=== PATIENT | male | born 1950 | race Caucasian/White ===

== ENCOUNTER → 2023-07-21 16:46 | Outpatient (REF) | payer MEDICARE, BC, SELFPAY | LOC: RAD 16:46 | PROVIDERS: ATTENDING PHYSICIAN Family Medicine | DX: E78.00 Pure hypercholesterolemia, unspecified (principal); R03.0 Elevated blood-pressure reading, without diagnosis of hypertension | CPT/HCPCS: 75571 ==

== ENCOUNTER 2023-08-30 15:15 | Inpatient (IN) | payer MEDICARE, BC, SELFPAY ==
[2023-08-30] VITALS (12 sets, daily range): BP systolic 132–176; BP diastolic 70–96; PULSE 58–78; BMI 20.6; BMI 20.2
--- NOTE | 2023-08-30 10:56 | ED.GENMED ---
History of Present Illness
General
Chief Complaint: Abdominal Symptoms
Source: patient and spouse
Exam Limitations: none
Time Seen by Provider: 08/30/23 10:34
Nursing documentation reviewed up to this point in time: agreed with
Travel History
Have you had any contact with someone who has COVID-19?: No
Do you have any symptoms of coronavirus? Fever > 100 degrees, chills, cough, shortness of breath, sore throat, loss of taste or smell, muscle aches, or headache?: No
History of Present Illness
History of Present Illness:
73-year-old male presents the emergency department complaining of an episode of abdominal pain and dizziness last night, nausea vomiting diarrhea, cold sweats and syncope. He states he had red stool. He also notes an area of bruising on his penis
base. He denies any pain at this time.
Past History
Past History
ED Past Medical History: Arrthythmia, Hypercholesterolemia and Other (Polyps)
ED Past Surgical History: Tonsilectomy and Other (Hernia repair)
Social History
Tobacco: Non-smoker
Alcohol: None
Personal:
Living: with family
Review of Systems
Review of Systems
Allergies reviewed?: Yes
All Other Systems: Not applicable
Constitutional: Reports no symptoms
EENT: Reports no symptoms
Respiratory: Reports no symptoms
Cardiac: Reports syncope
ABD/GI: Reports abdominal pain and bloody stools
: Reports no symptoms
Musculoskeletal: Reports no symptoms
Skin: Reports no symptoms
Neurological: Reports no symptoms
Endocrine: Reports no symptoms
Hematologic/Lymphatic: Reports no symptoms
Psychiatric: Reports no symptoms
Phy Exam
Physical Exam
Physical Exam:
Physical Exam
General: no apparent distress, not acutely ill
Neck: supple. no meningeal signs. normal posterior pharynx
Heart: s1/s2 regular rate and rhythm, no murmur. equal radial
pulses.
HEENT: Pupils equal round reactive to light, EOMI
Lungs: no acute respiratory distress. clear bilaterally
Abdomen: normal bowel sounds. not tender. no CVAT, rectal exam red guaiac positive stool
: Ecchymosis at base of
Neuro: alert and oriented. no focal neurological deficits cranial nerves II through XII intact
Skin: no rash
Psychiatric: well kept. interactive and cooperative
Extremities: no edema. no calf tenderness. negative homans. good distal pulses
Course
Orders/Labs/Results
Orders:
Orders
08/30/23 10:48
Cardiac Monitoring- Treatment ONCE
IV Insert/Care/Rem.- Treatment PRN
Pulse Ox/cont/shift [RESP] Stat
Quantity: 1
08/30/23 10:51
Electrocardiogram (*1) Stat
Reason for Study: Other
Other Reason for Exam: GI Bleed
EKG- Treatment ONCE
08/30/23 10:52
CT Head W/o Iv Contrast Urgent
Comment:
Reason For Exam: fall, hit head, on eliquis
08/30/23 11:14
Type+Screen Urgent
08/30/23 11:15
Complete Blood Count/With Diff Urgent
Comprehensive Metabolic Panel Urgent
PTT Urgent
Prothrombin Time Urgent
08/30/23 14:34
Admit/Transfer Patient As Directed
Co-Sign Provider:
Level of Care: Inpatient admission
Assign to:: Telemetry
Physician / Group: rivas
Diagnosis: GI bleed
Reason for Telemetry: Arrhythmia
Date to Stop Telemetry: 09/02/23
Time to Stop Telemetry: 11:00
Reason for Hospitalization: GI bleed
Expected length of stay greater than two midnights?: Yes
ELOS- Estimated Length of Stay in days: 3
I certify the patient meets the requirements for IP care: Yes
08/30/23 14:35
Code Status As Directed
Resuscitation Status: Full Code
08/30/23 19:07
Acetaminophen [Tylenol] 650 mg PO Q4HPRN PRN
08/30/23 19:07
GASTROINTESTINAL CONSULT Routine
Consulting Provider: Kira Peace
Was physician already notified: Yes
Activity As Directed
Activity Level: As Tolerated
INT (Intravenous Needle Therapy) As Directed
Comment: Place 2 IV catheters of the largest bore possible until stable
Orthostatic Vital Signs As Directed
Orthostatic VS Frequency: Now
Comment: then every four hours for twenty-four hours
Pneumatic Compression Sleeves As Directed
Type: Thigh high
Stool for occult blood [Hemetest Stools] As Directed
Vital Signs As Directed
Frequency: Per unit guidelines
DX Deep Vein Thrombosis Video Routine
08/30/23 19:48
Norovirus by PCR Stat
EVAN Source: Feces/Stool
Specimen Description:
Date Specimen was Collected: 08/30/23
Time Specimen was Collected: 19:45
Stool Culture Routine
EVAN Source: Feces/Stool
Specimen Description:
Date Specimen was Collected: 08/30/23
Time Specimen was Collected: 19:45
Stool For WBC Stat
EVAN Source: Feces/Stool
Specimen Description:
Date Specimen was Collected: 08/30/23
Time Specimen was Collected: 19:45
08/30/23 19:56
H&H Routine
08/30/23 20:00
Dronedarone [Multaq] 400 mg PO BID
Pantoprazole [Protonix IV] 40 mg IV BID
08/31/23 05:23
Basic Metabolic Panel IN AM
Complete Blood Count/No Diff IN AM
Lipid Profile [Cardiovascular Evaluation] IN AM
08/31/23 06:00
Occupational Therapy Consult [Ot Eval And Treat] IN AM
Physical Therapy Consult [Pt Eval And Treat] IN AM
Activity Level: As Tolerated
09/01/23 06:00
Basic Metabolic Panel IN AM
Complete Blood Count/No Diff IN AM
09/02/23 06:00
Basic Metabolic Panel IN AM
Complete Blood Count/No Diff IN AM
09/02/23 11:00
DC Protocol for Telemetry ONCE
09/03/23 06:00
Basic Metabolic Panel IN AM
Complete Blood Count/No Diff IN AM
09/04/23 06:00
Basic Metabolic Panel IN AM
Complete Blood Count/No Diff IN AM
Abnormal Lab Results
08/30/23
11:15
RBC 4.43 L 10^6/uL
(4.70-6.10)
MCH 33.9 H pg
(27.0-31.0)
Absolute Lymphs (auto) 0.6 L 10^3/uL
(1.2-3.4)
Absolute Monos (auto) 0.7 H 10^3/uL
(0.1-0.6)
Neutrophils % 80.6 H %
(42.2-75.2)
Lymphocytes % 8.9 L %
(20.5-51.1)
Monocytes % 9.8 H %
(1.7-9.3)
PT 15.5 H Sec
(11.4-14.6)
Glucose 145 H mg/dl
(70-99)
08/30/23 11:15
08/30/23 11:15
Vital Signs
Initial and Last Documented VS:
Initial Vital Signs
Temp Pulse Resp BP Pulse Ox
98.3 F 82 18 135/80 99
08/30/23 09:59 08/30/23 09:59 08/30/23 09:59 08/30/23 09:59 08/30/23 09:59
Last Documented Vital Signs
Temp Pulse Resp BP Pulse Ox
97.6 F 53 18 126/70 98
08/31/23 08:00 08/31/23 08:00 08/31/23 08:00 08/31/23 08:00 08/31/23 08:00
MDM/Problems Addressed
Differential Diagnosis Includes:
GI bleed, hemorrhoids, syncope, dysrhythmia
MDM/Problems Addressed:
73-year-old male with bright red blood per rectum, syncope episode. Vital signs stable. Unclear etiology of syncope. No signs of dysrhythmia. Admit to hospitalist.
Chronic conditions affecting care: Arrhythmia (Atrial fibrillation) and Other (Chronic anticoagulation)
Acute Exacerbation and/or Progression of Chronic Illness: Arrhythmia (Atrial fibrillation) and Other (Chronic anticoagulation)
*Radiology
Radiology exam reviewed: radiology read reviewed (CT head no acute findings)
*Pulse Oximetry
Patient hypoxic: no
*EKG
Interpreted by ED Provider?: Yes
EKG Intrepretation Date: 08/30/23
EKG Intrepretation Time: 10:56
Interpretation: abnormal
Comparison EKG: no changes
Heart Rate: 64
Rate: normal
Rhythm: sinus
Velpen: normal axis
Interval: normal interval
QRS Pattern: normal QRS
Ischemia: no ischemia
*Car Head Liner Installer Interpretation
Rate: normal
Interpretation: normal
Heart Rate: 65
Rhythm: sinus
*Critical Care Note
Total Time (30-74mins, 75-104mins- exclusive of procedures): Not Applicable
Data Reviewed
Review of Other/Old Records Reveals: Labs (Prior hemoglobin 13.9 on 01/28/2023)
Source: records
Further Testing Considered But Not Given:
CT abdomen pelvis not indicated at this time
Patient Management
Social determinants of health affecting care: Living situation
Discussion with other providers: Hospitalist
Escalation/DeEscalation of care consider admission/obs:
Admission indicated
ED Attending Note
-
Portions of this chart may have been created with voice recognition software.� Occasional wrong word or��sound alike� substitutions may have occurred due to the inherent limitations of voice recognition software.
Discharge Plan
Departure
Patient Disposition: Admit
Date of Disposition: 08/30/23
Time of Disposition: 14:01
Admit to: Telemetry
Admit to doctor: Rivas
Presentation/result/management discussed w/ accepting MD/DO: Hospitalist
Patient with high blood pressure during this ER visit?: Yes
Condition: Good
Discharge Problem:
Rectal bleeding, Syncope
Interventions
Interventions:
*Risk Screen - Suicide Last Done: 08/30/23 11:13
*General Assessment Last Done: 08/30/23 11:44
*Neglect/Abuse Screening Last Done: 08/30/23 11:13
*ED COVID-19 Vaccine History Last Done: 08/30/23 10:03
*Nursing Disposition Last Done: 08/30/23 19:10
DX-[id number]-Edcrfkkmsm Assessment Last Done: 08/30/23 18:06
Discharge Date and Time
Discharge Date/Time: 08/30/23 19:10
[2023-08-30 11:25] LABS: % Basophils 0.3 % (0-2); % Eosinophils 0.1 % (0-6); % Immature Granulocytes 0.3 % (0-0.5); % Lymphocytes 8.9 % (20.5-51.1); % Monocytes 9.8 % (1.7-9.3); % Neutrophils 80.6 % (42.2-75.2); Absolute Lymphocytes 0.6 10^3/uL (1.2-3.4); Absolute Monocytes 0.7 10^3/uL (0.1-0.6); Absolute Neutrophils 5.6 10^3/uL (1.4-6.5); Hematocrit 41.2 % (39.0-52.0); Mean Corp Hgb Conc. 36.4 g/dL (33.0-37.0); Mean Corpuscular Hgb 33.9 pg (27.0-31.0); Mean Platelet Volume 9.6 fL (7.4-10.4); Nucleated Red Blood Cells % 0 % (-); Platelet Count 255 10^3/uL (130-400); Red Blood Cell Count 4.43 10^6/uL (4.70-6.10); Red Cell Dist. Width 12.1 % (11.5-14.5)
[2023-08-30 11:37] LABS: INR 1.25; PT 15.5 Sec (11.4-14.6)
[2023-08-30 11:38] LABS: APTT 31.3 Sec (23.4-35.0)
[2023-08-30 11:45] LABS: ALT (SGPT) 22 U/L (0-50); AST (SGOT) 30 U/L (17-59); Albumin 4.3 g/dl (3.5-5.0); Alkaline Phosphatase 48 U/L (38-126); Blood Urea Nitrogen 18 mg/dl (9-20); Calcium 9.3 mg/dl (8.4-10.2); Carbon Dioxide 25 mmol/L (22-30); Chloride 102 mmol/L (98-107); Estimated Creatinine Clearance 92 ml/min; Glucose 145 mg/dl (70-99); Potassium 4.2 mmol/L (3.5-5.1); Sodium 135 mmol/L (135-145); Total Bilirubin 0.7 mg/dl (0.2-1.3); Total Protein 6.7 g/dl (6.3-8.2); eGFR > 60.00
--- NOTE | 2023-08-30 14:04 | HPS.HSE ---
Family Physician
-
Family Physician: Kelechi Lepe
Chief Complaint
-
rectal bleed
History of Present Illness
73 year old with PMH for atrial fib on eliquis, HLD, polyps presented to us with rectal bleed since last night. patient woke with sharp lower mid abdominal pain in the middle of night. pain subsided after having diarrhea. patient sat on toilet, felt
lightheaded, dizzy, fell towards the right side. hit the head on the wall. he lost the level of consciousness for few seconds. he got up, sat on the toilet and started having diarrhea for one hour, also vomited once. when he wiped he noticed
bright red blood. he woke with bloody diarrhea again. he ate beets on Tuesday night.at present denied JUSTICE. denied chest pain, sob. denied dysuria or hematuria. patient on eliquis since January. he had colonoscopy in January with impression of polyp in
ascending colon, which was removed. patient does not use NSAIDS. he uses Tylenol prn for any pain.
hgb stable in ER. admitting for further management.
Medical History
Past Medical History
Past Medical History: Reports Other
Additional Past Medical History:
left inguinal hernia
HLD
paroxysmal atrial fib
Past Surgical History: Reports Other
Additional Past Surgical History:
tonsillectomy
left inguinal hernia repair with mesh
Social History
Tobacco: Non-smoker
Alcohol: Occasional
Drug: None
Family History
Family History: Not pertinent
Allergies / Home Medications
Allergies reflects when Allergies were last updated in [facility].
Home Medications with original date entered in [facility]
Allergy/Medication List:
Allergies
Allergy/AdvReac Type Severity Reaction Status Date / Time
house dust Allergy nasal Verified 08/30/23 10:03
symptoms
mold Allergy nasal Verified 08/30/23 10:03
symptoms
Penicillins Allergy -2015? Verified 08/30/23 10:03
pollen extracts Allergy nasal Verified 08/30/23 10:03
symptoms
Home Medications
multivitamin 1 ea PO DAILY Supplement 09/21/19
apixaban 5 mg tablet (Eliquis) 5 mg PO BID Blood clot prevention/tx #60 tabs 01/28/23
acetaminophen 325 mg tablet (Tylenol) 650 mg PO Q4HPRN PRN mild pain 08/30/23
dronedarone 400 mg tablet (Multaq) 400 mg PO BID 08/30/23
Review of Systems
-
Constitutional: Reports No Symptoms
EENT: Reports No Symptoms
Respiratory: Reports No Symptoms
Cardiac: Reports No Symptoms
Abdomen/GI: Reports Abdominal Pain, Vomiting and Bloody Stools
: Reports No Symptoms
Musculoskeletal: Reports No Symptoms
Skin: Reports No Symptoms
Neurological: Reports Dizzy
Endocrine: Reports No Symptoms
Hematologic/Lymphatic: Reports No Symptoms
Psych: Reports No Symptoms
Physical Exam
Vital Signs
Vital Signs
Temp Pulse Resp BP Pulse Ox
98.3 F 82 18 135/80 99
08/30/23 09:59 08/30/23 09:59 08/30/23 09:59 08/30/23 09:59 08/30/23 09:59
Physical Exam
General: Well Developed, Well Nourished and No Apparent Distress
HEENT: NormoCephalic, Moist mucous membranes and Atraumatic
Respiratory: Clear
Cardiac: S1/S2 and Regular Rhythm; No Murmur or Rub
GI: Soft, Non Tender, Non Distended and Normal Bowel Sounds; No Organomegaly
Rectal: Deferred by Provider
Musculoskeletal: No Clubbing, No Cyanosis and No Edema
Skin: No Rash
Neuro: AO x 3 and Nonfocal/grossly intact
Psych: Calm
Laboratory Results
-
08/30/23 11:15
08/30/23 11:15
Laboratory Results
PT 15.5 Sec (11.4-14.6) H 08/30/23 11:15
INR 1.25 08/30/23 11:15
APTT 31.3 Sec (23.4-35.0) 08/30/23 11:15
Total Bilirubin 0.7 mg/dl (0.2-1.3) 08/30/23 11:15
AST 30 U/L (17-59) 08/30/23 11:15
ALT 22 U/L (0-50) 08/30/23 11:15
Alkaline Phosphatase 48 U/L (38-126) 08/30/23 11:15
Data Reviewed
-
Lab Data: Labs Reviewed by me
Impression/Plan
-
#GI bleed likely anticoagulant associated
-hgb 15.0
-trend hgb
-clear liquid diet
-IV PPI BID
-GI consulted
#diarrhea
-obtain stool culture, norovirus
-ctm
#syncope/fall likely vasovagal
-head CT with No evidence of acute intracranial abnormality.
-EKG with NSR, incomplete right bundle branch block
-PT/OT consult
#paroxysmal atrial fib
-HR controlled
-Multaq continued
-hold eliquis
#DVT prophylaxis
-scd
#CODE status
-full code
--- NOTE | 2023-08-30 14:24 | W.PN.UPDATE ---
Update Note
Progress Note Update
This serves as an addendum to H&P dictated by Rangel Lennon on 08/30/2023.
I saw and examined the patient.
The PICTURE COPYIST or PA's note was reviewed and I agree with the note.
Comment:
Patient is 73 years old male with history of hyperlipidemia, atrial fibrillation on chronic anticoagulation, presented to the hospital with abdominal pain nausea vomiting and diarrhea and bright blood per rectum as well as a syncope event. Patient
had mid abdominal pain moderate intensity associated with watery diarrhea and blood in the stools associated with lightheadedness and passed out hit his head on the wall. He has some chills. Denies out of the normal ordinary food. He does have
hemorrhoids and they are being bothering him. He also had a colonoscopy relatively recent that showed some polyps which were removed. In the ER hemoglobin noted to be [address] scan of the head unremarkable for any acute intracranial abnormalities.
Physical exam:
General: Well Developed, Well Nourished and No Apparent Distress
HEENT: Normocephalic, Atraumatic and Moist Mucous Membranes
Respiratory: Clear to Auscultation; Negative Wheezes, Rales or Rhonchi
Cardiac: Regular Rhythm and S1/S2
GI: Soft, Nontender and Nondistended
Musculoskeletal: No Clubbing, No Cyanosis and No Edema
Neuro: Awake, Alert and Oriented
Psych: Calm
A/P:
Syncope and GI bleed, likely hemorrhoidal-monitor hemoglobin, monitor orthostatic, cardiac monitoring. Stool cultures. Probably GI eval. Hold off anticoagulation for tonight. Will give further recommendations based on his clinical course.
--- NOTE | 2023-08-30 16:28 | CON.GI ---
Addendum entered and electronically signed by Kira Peace MD 08/30/23 17:33:
I saw and examined the patient.
The FISHER DIVING or PA's note was reviewed and I agree with the note.
Comment: 73-year-old male with history of hypertension, cholesterol, atrial fibrillation on Eliquis, presenting with sudden onset rectal bleeding. As per patient, he woke up from sleep early this morning with some abdominal pain, had an urge to
have a bowel movement, had cold sweat, chills passed out. When he regained consciousness, he went back to sit on the toilet bowl and had multiple episodes of what he says is red bowel movements. No abdominal pain since. Last bowel movement was
this morning and nothing since he came to the emergency room. Intermittent episodes of rectal bleeding with bright blood on the toilet tissue but nothing similar to occur at this time. He did report having the red beats 2 nights ago for dinner.
Does not take NSAIDs. Colonoscopy in January 2023, hemorrhoids and ascending colon sessile serrated polyp removed.
In the ER, hemoglobin in normal range, rectal exam showed red stool. Last Eliquis dose this morning. No family history of colon cancer or polyps. No evidence of diverticulosis noted on colonoscopy.
-Hematochezia, hemodynamically stable and normal hemoglobin in the setting of anticoagulation
Rule out diverticular bleed versus hemorrhoidal bleed versus other
Currently no further bleeding.
Okay for clear liquid diet without reds.
Agree with monitoring H&H and bowel movements.
If overt active bleeding, agree with CT angiogram.
Stool studies if continues to have bloody diarrhea.
Will follow-up
Original Note:
Consultation
-
Date/Time Consultation Requested: 08/30/23 1500
Date/Time Consultation Performed: 08/30/23 1530
Requesting Provider: BERNADETTE Lambert
Performing Provider: Dr. Peace/BERNADETTE Dawn
Reason for Consultation: Rectal bleeding
Medical History
Chief Complaint / HPI
Chief Complaint: rectal bleeding
History of Present Illness:
73-year-old male with past medical history of hyperlipidemia, HTN, colon polyps, A-fib on Eliquis 5 mg twice daily, last dose this a.m. who presents to the emergency room with rectal bleeding. Asked to evaluate for the same. Patient states that
last night in the middle the night he got up with sharp abdominal discomfort. He sat on the toilet to have a bowel movement, he states he felt dizzy lightheaded and passed out. He believes he did lose consciousness. He has an abrasion across the
right side of his forehead. He states he went back on the toilet proceeded to have evacuate his bowels and have multiple liquid bowel movements which alleviated his discomfort. He states that initially he did not look at his multiple bowel
movements but then eventually he did and he noticed it was blood within the toilet. He states that this was bloody loose stools. At first he thought that it was the beets that he ate on Tuesday. He did have a normal bowel movement following eating
that. The night before he also had kale salad, strawberries. He states his had the same thing but is not sick. He also states that he did have nausea and vomiting. Patient states he continued to have blood per rectum. He states that he
does have hemorrhoids and does have bright red blood per rectum upon wiping a couple times a week. This is never bloody stools. The patient has had no further abdominal discomfort. The patient's last episode of bleeding was prior to arrival. He
had a rectal exam performed in the emergency room that was bright red blood per rectum. He denies any fevers, chills, melena, dysphagia or odynophagia. No early satiety or unintentional weight loss. He does not take any NSAIDs.WBC 7.0, hemoglobin
15.0, hematocrit 41.2, platelets 255, MCV 93.0, MCH 33.9, PT 15.5, INR 1.25, sodium 135, potassium 4.2, chloride 102, CO2 25, BUN 18, creatinine 0.7, glucose 145, total bilirubin 0.7, AST 30, ALT 22, alk phos 48.
Past Medical History
Past Medical History: Arrhythmias (Afib), HTN, Hypercholesterolemia and Other (colon polyps)
Past Surgical History: Tonsilectomy and Other (hernia repair)
Social History
Tobacco: Non-Smoker
Alcohol: Occasional (5 drinks a week)
Drug: None
Personal:
Living: With Family
Family History
Family History: Other (No family hx GI malignancy or IBD)
Allergies / Home Medications
Allergy/AdvReac Type Severity Reaction Status Date / Time
house dust Allergy nasal Verified 08/30/23 10:03
symptoms
mold Allergy nasal Verified 08/30/23 10:03
symptoms
Penicillins Allergy -2014? Verified 08/30/23 10:03
pollen extracts Allergy nasal Verified 08/30/23 10:03
symptoms
�Medication �Instructions �Recorded
multivitamin 1 ea PO DAILY Supplement 09/21/19
apixaban 5 mg tablet (Eliquis) 5 mg PO BID Blood clot 01/28/23
prevention/tx #60 tabs
acetaminophen 325 mg tablet 650 mg PO Q4HPRN PRN mild pain 08/30/23
(Tylenol)
dronedarone 400 mg tablet (Multaq) 400 mg PO BID 08/30/23
Review of Systems
-
All other systems: A 12 pt ROS was Negative except as stated above in HPI
Vital Signs
Temp Pulse Resp BP Pulse Ox
98.3 F 70 20 165/83 98
08/30/23 09:59 08/30/23 15:46 08/30/23 15:46 08/30/23 15:46 08/30/23 15:46
Physical Exam
Exam
General: No Apparent Distress
HEENT: Normocephalic
Respiratory: Clear
Cardiac: Regular Rhythm
GI: Soft, Non Tender, Non Distended and Normal Bowel Sounds
Rectal: Red
Skin: Warm and Dry
Neuro: AO x 3
Psych: Calm
Results
WBC 7.0 10^3/uL (4.8-10.8) 08/30/23 11:15
Hgb 15.0 g/dL (13.0-18.0) 08/30/23 11:15
Hct 41.2 % (39.0-52.0) 08/30/23 11:15
MCV 93.0 fL (80.0-94.0) 08/30/23 11:15
Plt Count 255 10^3/uL (130-400) 08/30/23 11:15
Absolute Neuts (auto) 5.6 10^3/uL (1.4-6.5) 08/30/23 11:15
PT 15.5 Sec (11.4-14.6) H 08/30/23 11:15
INR 1.25 08/30/23 11:15
APTT 31.3 Sec (23.4-35.0) 08/30/23 11:15
Sodium 135 mmol/L (135-145) 08/30/23 11:15
Potassium 4.2 mmol/L (3.5-5.1) 08/30/23 11:15
Chloride 102 mmol/L (98-107) 08/30/23 11:15
Carbon Dioxide 25 mmol/L (22-30) 08/30/23 11:15
BUN 18 mg/dl (9-20) 08/30/23 11:15
Creatinine 0.7 mg/dL (0.7-1.3) 08/30/23 11:15
Calcium 9.3 mg/dl (8.4-10.2) 08/30/23 11:15
Total Bilirubin 0.7 mg/dl (0.2-1.3) 08/30/23 11:15
AST 30 U/L (17-59) 08/30/23 11:15
ALT 22 U/L (0-50) 08/30/23 11:15
Alkaline Phosphatase 48 U/L (38-126) 08/30/23 11:15
Diagnostic Image Results:
Prior GI Procedures:
EGD: never
Colonoscopy: 01/27/2023 ([facility]) - One 4 mm polyp in the ascending colon, removed with
a cold snare. Resected and retrieved.
- Internal hemorrhoids.
Colonoscopy 01/26/2013 ([facility]) - Two benign appearing 3 to 12 mm polyps in the rectum
and in the proximal ascending colon. These were biopsied.
- The examined portion of the ileum was normal.
Assessment / Plan
-
73-year-old male with past medical history of hyperlipidemia, HTN, colon polyps, A-fib on Eliquis 5 mg twice daily, last dose this a.m. who presents to the emergency room with rectal bleeding. Asked to evaluate for the same. Patient states that
last night in the middle the night he got up with sharp abdominal discomfort. He sat on the toilet to have a bowel movement, he states he felt dizzy lightheaded and passed out. He believes he did lose consciousness. He has an abrasion across the
right side of his forehead. He states he went back on the toilet proceeded to have evacuate his bowels and have multiple liquid bowel movements which alleviated his discomfort. He states that initially he did not look at his multiple bowel
movements but then eventually he did and he noticed it was blood within the toilet. He states that this was bloody loose stools. These eventually slowed down and he has had no further since arrival in the ER. It also was associated with nausea and
vomiting. He did have kale and strawberries prior to onset of symptoms. His also had same thing and was not ill. He had no fevers or chills. There is no leukocytosis. He has had no further abdominal cramping or pain. His abdomen is
nontender. WBC 7.0, hemoglobin 15.0, hematocrit 41.2, platelets 255, MCV 93.0, MCH 33.9, PT 15.5, INR 1.25, sodium 135, potassium 4.2, chloride 102, CO2 25, BUN 18, creatinine 0.7, glucose 145, total bilirubin 0.7, AST 30, ALT 22, alk phos 48.
Impression:
Hematochezia-> Hgb 15.0
Chronic anticoagulation Eliquis for A-fib, last dose this morning
Nausea and vomiting resolved
Plan:
-Trend Hgb
-Clear liquids no reds
-Stool studies if with BM
-Hold on any Abx as patient non toxic and without any abd pain
-If with active brisk bleeding would order CTA Abd/Pelvis.
-Further recommendations to be forthcoming
-
-
Thank you for consultation and allowing me to participate in the patient's care. Please call the program evaluation consultant GI physician during the after hours with any questions or concerns.
[2023-08-30 20:03] LABS: Hematocrit 44.3 % (39.0-52.0); Hemoglobin 15.3 g/dL (13.0-18.0)
[2023-08-30] MEDS: NSS (PRESERVATIVE FREE) 10 ML IV (20:03)
[2023-08-30] MEDS: PROTONIX IV 40 MG IV (20:03)
[2023-08-30] MEDS: MULTAQ 400 MG PO (20:03)
--- NOTE | 2023-08-30 22:13 | VATNOTE ---
PT WITH NO IV THERAPY ORDERS. H/H 15.0/41.2 WILL NOT INSERT A SECOND LARGE BORE IV AT THIS TIME.
[2023-08-31] VITALS (11 sets, daily range): BP systolic 120–160; BP diastolic 70–85; PULSE 53–69; O2SAT 100
[2023-08-31 06:20] LABS: Hematocrit 41.3 % (39.0-52.0); Hemoglobin 14.2 g/dL (13.0-18.0); Mean Corp Hgb Conc. 34.4 g/dL (33.0-37.0); Mean Corpuscular Hgb 33.1 pg (27.0-31.0); Mean Corpuscular Volume 96.3 fL (80.0-94.0); Mean Platelet Volume 9.6 fL (7.4-10.4); Platelet Count 224 10^3/uL (130-400); Red Blood Cell Count 4.29 10^6/uL (4.70-6.10); Red Cell Dist. Width 12.4 % (11.5-14.5); White Blood Cell Count 4.7 10^3/uL (4.8-10.8)
[2023-08-31 06:58] LABS: Blood Urea Nitrogen 14 mg/dl (9-20); Calcium 8.7 mg/dl (8.4-10.2); Carbon Dioxide 27 mmol/L (22-30); Chloride 105 mmol/L (98-107); Estimated Creatinine Clearance 78 ml/min; Glucose 84 mg/dl (70-99); HDL Cholesterol 56 mg/dl; LDL Cholesterol, Calculated 92 mg/dl; Potassium 4.2 mmol/L (3.5-5.1); Sodium 139 mmol/L (135-145); Total Cholesterol 166 mg/dl (50-199); Triglyceride 91 mg/dl (10-149); Very Low Density Lipoprotein 18 mg/dl (0-30); eGFR > 60.00
[2023-08-31] MEDS: MULTAQ 400 MG PO ×2 (08:02→19:49)
[2023-08-31] MEDS: NSS (PRESERVATIVE FREE) 10 ML IV ×2 (08:02→19:49)
[2023-08-31] MEDS: PROTONIX IV 40 MG IV ×2 (08:02→19:50)
--- NOTE | 2023-08-31 08:45 | W.PN.HOSP.TC ---
Today's Communication/Plan
-
Monitor hemoglobin. GI reeval.
Assessment / Plan
Assessment / Plan
Physical Exam
General: Well Developed, Well Nourished and No Apparent Distress
HEENT: NormoCephalic, Moist mucous membranes and Atraumatic
Respiratory: Clear
Cardiac: S1/S2 and Regular Rhythm; No Murmur or Rub
GI: Soft, Non Tender, Non Distended and Normal Bowel Sounds; No Organomegaly
Rectal: Deferred by Provider
Musculoskeletal: No Clubbing, No Cyanosis and No Edema
Skin: No Rash
Neuro: AO x 3 and Nonfocal/grossly intact
Psych: Calm
A/P:
#GI bleed likely anticoagulant associated
-hgb 15.0-->14.2
-trend hgb
-clear liquid diet--> advance to full liquid today
-IV PPI BID
-GI consult and follow-up appreciated
-Restart anticoagulation when okay by GI
#diarrhea
-obtain stool culture, c diff, norovirus
-ctm
#syncope/fall likely vasovagal
-head CT with No evidence of acute intracranial abnormality.
-EKG with NSR, incomplete right bundle branch block
-PT/OT consult
-Check orthostatics
#paroxysmal atrial fib
-HR controlled
-Multaq continued
-hold eliquis
#DVT prophylaxis
-scd
#CODE status
-full code
Anticipated Discharge: 24 - 48 hours
Subjective/Interval History
-
Date of Service: August 31, 2023
Patient without further bleeding today. No abdominal pain.
Objective Data
-
Labs:
Laboratory Results
08/31/23
05:23
WBC 4.7 L
Hgb 14.2
Hct 41.3
Plt Count 224
Sodium 139
Potassium 4.2
Chloride 105
Carbon Dioxide 27
BUN 14
Creatinine 0.8
Glucose 84
Calcium 8.7
Vital Signs:
Vital Signs
Temp Pulse Resp BP Pulse Ox
97.6 F 53 18 126/70 98
08/31/23 08:00 08/31/23 08:00 08/31/23 08:00 08/31/23 08:00 08/31/23 08:00
I&O
08/30/23 08/31/23 09/01/23
06:59 06:59 06:59
Intake Total 440 / 440
Balance 440 / 440
--- NOTE | 2023-08-31 09:34 | PTOTSP ---
The patient is independent with ambulation and elevations, demonstrating no mobility deficits. No PT needs identified at this time, will sign off.
--- NOTE | 2023-08-31 09:42 | PTOTSP ---
Pt is independent in ADLs and functional mobility/transfers with no device. No skilled OT services warranted. Will sign off.
--- NOTE | 2023-08-31 12:46 | W.PN.GI.CBS2 ---
Today's Communication / Plan
-
-Hematochezia, hemodynamically stable and normal hemoglobin in the setting of anticoagulation
Rule out diverticular bleed versus hemorrhoidal bleed versus infectious
Bleeding seems to have subsided now.
Stool white cells noted, normal white is negative, cultures pending. Will add C. difficile.
Cannot rule out infectious etiology
Currently no further bleeding.
Okay for full liquid diet
Continue monitoring H&H and bowel movements.
If overt active bleeding, agree with CT angiogram.
Will follow-up
Assessment / Plan
-
73-year-old male with past medical history of hyperlipidemia, HTN, colon polyps, A-fib on Eliquis 5 mg twice daily, last dose this a.m. who presents to the emergency room with rectal bleeding. Asked to evaluate for the same. Patient states that
last night in the middle the night he got up with sharp abdominal discomfort. He sat on the toilet to have a bowel movement, he states he felt dizzy lightheaded and passed out. He believes he did lose consciousness. He has an abrasion across the
right side of his forehead. He states he went back on the toilet proceeded to have evacuate his bowels and have multiple liquid bowel movements which alleviated his discomfort. He states that initially he did not look at his multiple bowel
movements but then eventually he did and he noticed it was blood within the toilet. He states that this was bloody loose stools. These eventually slowed down and he has had no further since arrival in the ER. It also was associated with nausea and
vomiting. He did have kale and strawberries prior to onset of symptoms. His also had same thing and was not ill. He had no fevers or chills. There is no leukocytosis. He has had no further abdominal cramping or pain. His abdomen is
nontender. WBC 7.0, hemoglobin 15.0, hematocrit 41.2, platelets 255, MCV 93.0, MCH 33.9, PT 15.5, INR 1.25, sodium 135, potassium 4.2, chloride 102, CO2 25, BUN 18, creatinine 0.7, glucose 145, total bilirubin 0.7, AST 30, ALT 22, alk phos 48.
Impression:
Hematochezia-> Hgb 15.0
Chronic anticoagulation Eliquis for A-fib, last dose this morning
Nausea and vomiting resolved
-Hematochezia, hemodynamically stable and normal hemoglobin in the setting of anticoagulation
Rule out diverticular bleed versus hemorrhoidal bleed versus infectious
Bleeding seems to have subsided now.
Stool white cells noted, normal white is negative, cultures pending. Will add C. difficile.
Cannot rule out infectious etiology
Currently no further bleeding.
Okay for full liquid diet
Continue monitoring H&H and bowel movements.
If overt active bleeding, agree with CT angiogram.
Will follow-up
Addendum dictated by: Kira Peace MD
Subjective
Subjective
Date of Service: August 31, 2023
Patient without any abdominal pain, nausea or vomiting. He had a couple loose bowel movements in the morning and 1 last night at 9 PM, maroon stool, mostly blood and nothing since.
Objective
Data Reviewed
Laboratory Data:
Laboratory Results
08/31/23 05:23
08/31/23 05:23
Laboratory Results
PT 15.5 Sec (11.4-14.6) H 08/30/23 11:15
INR 1.25 08/30/23 11:15
APTT 31.3 Sec (23.4-35.0) 08/30/23 11:15
Total Bilirubin 0.7 mg/dl (0.2-1.3) 08/30/23 11:15
AST 30 U/L (17-59) 08/30/23 11:15
ALT 22 U/L (0-50) 08/30/23 11:15
Alkaline Phosphatase 48 U/L (38-126) 08/30/23 11:15
Vital Signs and I&O:
Vital Signs
Temp Pulse Resp BP Pulse Ox
97.8 F 57 18 151/77 98
08/31/23 11:05 08/31/23 11:05 08/31/23 11:05 08/31/23 11:05 08/31/23 11:05
I&O
08/30/23 08/31/23 09/01/23
06:59 06:59 06:59
Intake Total 440 / 440
Balance 440 / 440
Physical Exam
Physical Exam
GI: Soft, Non Distended, Non Tender and Normal Bowel Sounds
--- NOTE | 2023-08-31 17:16 | CM ---
Alert awake oriented patient who lives with his Michelle who lives in a 2 story home with 2 step to enter and 12 steps to bed and bathroom. He is independent in driving and in all activities of daily living.He was offered VN he declined need.No
adaptive devices.
No VN hx / No SNF history
[facility]
PCP DR Camarena
PLAN Home Declined VN
[2023-09-01] VITALS (9 sets, daily range): BP systolic 132–151; BP diastolic 67–84
[2023-09-01 06:34] LABS: Hematocrit 41.3 % (39.0-52.0); Hemoglobin 14.4 g/dL (13.0-18.0); Mean Corp Hgb Conc. 34.9 g/dL (33.0-37.0); Mean Corpuscular Volume 94.5 fL (80.0-94.0); Mean Platelet Volume 9.6 fL (7.4-10.4); Platelet Count 224 10^3/uL (130-400); Red Blood Cell Count 4.37 10^6/uL (4.70-6.10); Red Cell Dist. Width 12.3 % (11.5-14.5)
[2023-09-01 06:56] LABS: Blood Urea Nitrogen 12 mg/dl (9-20); Calcium 9.1 mg/dl (8.4-10.2); Carbon Dioxide 28 mmol/L (22-30); Chloride 103 mmol/L (98-107); Estimated Creatinine Clearance 78 ml/min; Glucose 85 mg/dl (70-99); Potassium 4.4 mmol/L (3.5-5.1); Sodium 137 mmol/L (135-145); eGFR > 60.00
[2023-09-01] MEDS: NSS (PRESERVATIVE FREE) 10 ML IV (08:17)
[2023-09-01] MEDS: PROTONIX IV 40 MG IV (08:17)
[2023-09-01] MEDS: MULTAQ 400 MG PO ×2 (08:17→20:19)
--- NOTE | 2023-09-01 08:36 | W.PN.HOSP.TC ---
Today's Communication/Plan
-
Monitor hemoglobin.
Assessment / Plan
Assessment / Plan
Physical Exam
General: Well Developed, Well Nourished and No Apparent Distress
HEENT: NormoCephalic, Moist mucous membranes and Atraumatic
Respiratory: Clear
Cardiac: S1/S2 and Regular Rhythm; No Murmur or Rub
GI: Soft, Non Tender, Non Distended and Normal Bowel Sounds; No Organomegaly
Rectal: Deferred by Provider
Musculoskeletal: No Clubbing, No Cyanosis and No Edema
Skin: No Rash
Neuro: AO x 3 and Nonfocal/grossly intact
Psych: Calm
A/P:
#GI bleed likely anticoagulant associated
-hgb 15.0-->14.2-->14.4
-trend hgb
-clear liquid diet--> advance to full liquid since yesterday by GI.
-IV PPI BID
-GI consult and follow-up appreciated
-Restart anticoagulation when okay by GI. I would suggest advancing diet today and to restart anticoagulation tonight and if no bleeding probably home tomorrow but I will follow-up GI recommendations first.
#diarrhea
-obtain stool culture, c diff, norovirus, all came back negative.
-ctm
#syncope/fall likely vasovagal
-head CT with No evidence of acute intracranial abnormality.
-EKG with NSR, incomplete right bundle branch block
-PT/OT consult
-Check orthostatics
#paroxysmal atrial fib
-HR controlled
-Multaq continued
-hold eliquis
#DVT prophylaxis
-scd
#CODE status
-full code
Anticipated Discharge: Within 24 hours
Subjective/Interval History
-
Date of Service: September 01, 2023
No further episodes of bleeding. No bowel movement today either. No abdominal pain or nausea or vomiting.
Objective Data
-
Labs:
Laboratory Results
09/01/23
05:40
WBC 4.0 L
Hgb 14.4
Hct 41.3
Plt Count 224
Sodium 137
Potassium 4.4
Chloride 103
Carbon Dioxide 28
BUN 12
Creatinine 0.8
Glucose 85
Calcium 9.1
Vital Signs:
Vital Signs
Temp Pulse Resp BP Pulse Ox
97.5 F 51 18 132/68 100
09/01/23 03:45 09/01/23 03:45 09/01/23 03:45 09/01/23 03:45 09/01/23 03:45
I&O
08/31/23 09/01/23 09/02/23
06:59 06:59 06:59
Intake Total 440 / 440 0 / 1710
Balance 440 / 440 1709 / 1710
--- NOTE | 2023-09-01 12:27 | W.PN.GI.CBS2 ---
Today's Communication / Plan
-
Hematochezia, hemodynamically stable and normal hemoglobin in the setting of anticoagulation
Rule out diverticular bleed versus hemorrhoidal bleed versus infectious
Bleeding seems to have subsided now.
Stool white cells noted, normal white is negative, C. difficile negative, Salmonella, Shigella, E. coli negative, Campylobacter pending
Cannot rule out infectious etiology
Will advance to low residue diet given no further bleeding
Okay to start the Eliquis today.
Monitor bowel movements and if any further bleeding, will plan for colonoscopy.
Discussed with patient to call us if there is any further bleeding after discharge, he is aware to watch for bowel movements on a daily basis.
Assessment / Plan
-
73-year-old male with past medical history of hyperlipidemia, HTN, colon polyps, A-fib on Eliquis 5 mg twice daily, last dose this a.m. who presents to the emergency room with rectal bleeding. Asked to evaluate for the same. Patient states that
last night in the middle the night he got up with sharp abdominal discomfort. He sat on the toilet to have a bowel movement, he states he felt dizzy lightheaded and passed out. He believes he did lose consciousness. He has an abrasion across the
right side of his forehead. He states he went back on the toilet proceeded to have evacuate his bowels and have multiple liquid bowel movements which alleviated his discomfort. He states that initially he did not look at his multiple bowel
movements but then eventually he did and he noticed it was blood within the toilet. He states that this was bloody loose stools. These eventually slowed down and he has had no further since arrival in the ER. It also was associated with nausea and
vomiting. He did have kale and strawberries prior to onset of symptoms. His also had same thing and was not ill. He had no fevers or chills. There is no leukocytosis. He has had no further abdominal cramping or pain. His abdomen is
nontender. WBC 7.0, hemoglobin 15.0, hematocrit 41.2, platelets 255, MCV 93.0, MCH 33.9, PT 15.5, INR 1.25, sodium 135, potassium 4.2, chloride 102, CO2 25, BUN 18, creatinine 0.7, glucose 145, total bilirubin 0.7, AST 30, ALT 22, alk phos 48.
Impression:
Hematochezia-> Hgb 15.0
Chronic anticoagulation Eliquis for A-fib, last dose this morning
Nausea and vomiting resolved
-Hematochezia, hemodynamically stable and normal hemoglobin in the setting of anticoagulation
Rule out diverticular bleed versus hemorrhoidal bleed versus infectious
Bleeding seems to have subsided now.
Stool white cells noted, normal white is negative, C. difficile negative, Salmonella, Shigella, E. coli negative, Campylobacter pending
Cannot rule out infectious etiology
Will advance to low residue diet given no further bleeding
Okay to start the Eliquis today.
Monitor bowel movements and if any further bleeding, will plan for colonoscopy.
Discussed with patient to call us if there is any further bleeding after discharge, he is aware to watch for bowel movements on a daily basis.
Addendum dictated by: Kira Peace MD
Subjective
Subjective
Date of Service: September 01, 2023
Patient denies any complaints. No bowel movements since 08/30/2023.
Objective
Data Reviewed
Laboratory Data:
Laboratory Results
09/01/23 05:40
09/01/23 05:40
Laboratory Results
PT 15.5 Sec (11.4-14.6) H 08/30/23 11:15
INR 1.25 08/30/23 11:15
APTT 31.3 Sec (23.4-35.0) 08/30/23 11:15
Total Bilirubin 0.7 mg/dl (0.2-1.3) 08/30/23 11:15
AST 30 U/L (17-59) 08/30/23 11:15
ALT 22 U/L (0-50) 08/30/23 11:15
Alkaline Phosphatase 48 U/L (38-126) 08/30/23 11:15
Vital Signs and I&O:
Vital Signs
Temp Pulse Resp BP Pulse Ox
97.4 F 56 16 151/84 100
09/01/23 11:39 09/01/23 11:39 09/01/23 11:39 09/01/23 11:39 09/01/23 11:39
I&O
08/31/23 09/01/23 09/02/23
06:59 06:59 06:59
Intake Total 440 / 440 1710 / 1710
Balance 440 / 440 1710 / 1710
Physical Exam
Physical Exam
GI: Soft, Non Distended and Non Tender
--- NOTE | 2023-09-01 15:58 | CM ---
CM reviewed chart, anticipated discharge within 24 hours. Per PT, no skilled need. CM will continue to follow for all discharge planning needs.
Plan; home no needs anticipated.
[2023-09-01] MEDS: PROTONIX 40 MG PO (20:19)
[2023-09-01] MEDS: ELIQUIS 5 MG PO (20:19)
[2023-09-02 00:08] VITALS: BP 132/67
[2023-09-02 03:44] VITALS: BP 128/74
[2023-09-02 06:50] LABS: Hematocrit 42.9 % (39.0-52.0); Hemoglobin 14.8 g/dL (13.0-18.0); Mean Corp Hgb Conc. 34.5 g/dL (33.0-37.0); Mean Corpuscular Hgb 33.1 pg (27.0-31.0); Mean Platelet Volume 9.6 fL (7.4-10.4); Platelet Count 214 10^3/uL (130-400); Red Blood Cell Count 4.47 10^6/uL (4.70-6.10); Red Cell Dist. Width 12.1 % (11.5-14.5); White Blood Cell Count 3.9 10^3/uL (4.8-10.8)
[2023-09-02 07:15] VITALS: BP 145/74
[2023-09-02] MEDS: MULTAQ 400 MG PO (08:10)
[2023-09-02] MEDS: PROTONIX 40 MG PO (08:11)
[2023-09-02] MEDS: ELIQUIS 5 MG PO (08:11)
--- NOTE | 2023-09-02 08:22 | W.PN.HOSP.TC ---
Today's Communication/Plan
-
Discharge planning today.
Assessment / Plan
Assessment / Plan
Physical Exam
General: Well Developed, Well Nourished and No Apparent Distress
HEENT: NormoCephalic, Moist mucous membranes and Atraumatic
Respiratory: Clear
Cardiac: S1/S2 and Regular Rhythm; No Murmur or Rub
GI: Soft, Non Tender, Non Distended and Normal Bowel Sounds; No Organomegaly
Rectal: Deferred by Provider
Musculoskeletal: No Clubbing, No Cyanosis and No Edema
Skin: No Rash
Neuro: AO x 3 and Nonfocal/grossly intact
Psych: Calm
A/P:
#GI bleed likely anticoagulant associated
-hgb 15.0-->14.2-->14.4-->14.8
-trend hgb
-Tolerating regular diet
-IV PPI BID
-GI consult and follow-up appreciated
-Restarted anticoagulation without any problems
#diarrhea
-obtain stool culture, c diff, norovirus, all came back negative.
-ctm
#syncope/fall likely vasovagal
-head CT with No evidence of acute intracranial abnormality.
-EKG with NSR, incomplete right bundle branch block
-PT/OT consult
-Check orthostatics
#paroxysmal atrial fib
-HR controlled
-Multaq continued
-hold eliquis
#DVT prophylaxis
-scd
#CODE status
-full code
Anticipated Discharge: Today
Subjective/Interval History
-
Date of Service: September 02, 2023
No further bleeding. No new complaints
Objective Data
-
Labs:
Laboratory Results
09/02/23
05:38
WBC 3.9 L
Hgb 14.8
Hct 42.9
Plt Count 214
Vital Signs:
Vital Signs
Temp Pulse Resp BP Pulse Ox
98.0 F 53 12 128/74 97
09/02/23 03:44 09/02/23 03:44 09/02/23 03:44 09/02/23 03:44 09/02/23 03:44
I&O
09/01/23 09/02/23 09/03/23
06:59 06:59 06:59
Intake Total 1710 / 1710 1380 / 1380
Balance 1710 / 1710 1380 / 1380
--- NOTE | 2023-09-02 11:17 | W.DCSUMMARY ---
Discharge Summary
Discharge Data
Date of Admission: 08/30/23
Date of Discharge: 09/02/23
-
Pending Results: No
Hospital Course
Patient 73 years old male history of hyperlipidemia, colon polyps, atrial fibrillation on anticoagulation presented to the hospital rectal bleeding. Patient has some loose stools and C. difficile was negative as well as stool cultures. GI
consulted. Patient hemoglobin remained stable throughout hospital stay. Initially anticoagulant was on hold. Initially also he was on clear liquid diet but we were able to advance to regular diet, low residue. Anticoagulation was restarted and
hemoglobin remained stable and no further signs of bleeding. He did not require any further GI interventions. GI cleared him for discharge. Patient blood pressure remained stable throughout his hospital stay but did increased upon the day of
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
Otherwise, patient feels back to his baseline and he is going to be discharged in stable condition today.
Discharge duration: 31 minutes
Discharge Plan
-
Patient Disposition: Home (Routine Discharge)
Discharge Diagnosis/Procedures: Acute gastrointestinal bleed. Syncope. Paroxysmal atrial fibrillation.
Diet: Low Cholesterol
Activity: As tolerated
Driving Restrictions: As prior to admission
Blood Work: Please PCP to order CBC, BMP within 1 week
Referrals:
Kelechi Lepe MD [Family Provider] - in less than 1 week
Prescriptions:
Continued
multivitamin 1 EACH tablet
1 ea PO DAILY
Eliquis 5 mg tablet
5 mg PO BID Qty: 60 0RF
acetaminophen [Tylenol] 325 mg Tablet
650 mg PO Q4HPRN PRN (Reason: mild pain)
Multaq 400 mg Tablet
400 mg PO BID
Discharge Orders:
Discharge Patient (As Directed); Ordered 09/02/23
Ordered By: Boy Madrigal
Discharge Date and Time
Discharge Date/Time: 09/02/23 12:35
Print Language: ESTONIAN
--- NOTE | 2023-09-02 11:53 | PTCARENOTE ---
Vital sign taken prior to going over d/c paperwork. Patients BP is elevated 168/91 with a heart rate of 65. Manual reading of 160/80. Dr. Madrigal notified. Will wait response before d/c patient. Patient is asymptomatic and having lunch.
[2023-09-02 11:54] VITALS: BP 160/80
--- NOTE | 2023-09-02 12:12 | PTCARENOTE ---
Per Dr. Madrigal patient is ok for d/c. 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
--- NOTE | 2023-09-02 17:20 | CM ---
met with patient who is stable for dc home with no needs,explained imm letter to patient and he gave permission to sign document.family to transport home.
== END 2023-09-02 12:35 | disposition home or self-care (01) | DRG 813 ==
LOC: 2 NORTH 15:15
PROVIDERS: Registered Nurse; ADMITTING PHYSICIAN Hospitalist; CONSULT PHYSICIAN Internal Medicine Gastroenterology; EMERGENCY PHYSICIAN Emergency Medicine; FAMILY PHYSICIAN Family Medicine
DX: D68.32 Hemorrhagic disorder due to extrinsic circulating anticoagulants (principal); K62.5 Hemorrhage of anus and rectum; E78.00 Pure hypercholesterolemia, unspecified; R55 Syncope and collapse; R19.7 Diarrhea, unspecified; K64.8 Other hemorrhoids; I10 Essential (primary) hypertension; J30.89 Other allergic rhinitis; I45.10 Unspecified right bundle-branch block; I48.0 Paroxysmal atrial fibrillation; W18.12XA Fall from or off toilet with subsequent striking against object, initial encounter; Y93.89 Activity, other specified; Y92.002 Bathroom of unspecified non-institutional (private) residence as the place of occurrence of the external cause; Z88.0 Allergy status to penicillin; Z79.01 Long term (current) use of anticoagulants; Z86.010 Personal history of colon polyps
CPT/HCPCS: 70450; 80048; 80053; 80061; 85014; 85018; 85025; 85027; 85610; 85730; 86850; 86900; 86901; 87045; 87046; 87324; 87427; 87449; 87798; 89055; 93005; 97162; 97165; 99285